=== PATIENT | female | born 1965 | race Caucasian/White ===

== ENCOUNTER 2017-06-15 11:42 | Inpatient (IN) ==
--- NOTE | 2017-06-15 11:50 | History & Physical Report ---
Date of Encounter: 06/15/17 Time of Encounter: 11:50 24 Hour HP Update - Instructions Instructions: If the History and Physical is less than 30 days old and was completed prior to A.M. admission and or procedure and has NOT been updated on calendar day of procedure please complete this update prior to performing procedure. - Update Patient reports changes in Medical Condition: No Changes in examination, assessment, or condition: No Changes in Medication: No Preop tests/diagnostics Reviewed: Yes Surgery Remains Indicated: Yes Consent for Planned Operative Procedure(s) Verified: Yes - Pre-Operative Checklist Preoperative Checklist Indicated: Yes Prophylactic Antibiotic Ordered: Yes Home Medications Include Beta Supriya: No
[2017-06-15] MEDS ORDERED: cefOXitin 2,000 MG in Water for inj. (sterile) 20 ML 10 ML IVP ONE (11:55)
[2017-06-15] MEDS ORDERED: Albuterol 2.5 MG/3 ML NEBULIZER IH ONE (11:55)
[2017-06-15] MEDS ORDERED: Albuterol 2.5 MG/3 ML NEBULIZER ONE (11:56)
[2017-06-15] MEDS: Ringers Solution, Lactated 1,000 ML IVC SCH ×2 (12:11→20:01)
[2017-06-15] MEDS ORDERED: *HR* Succinylcholine 200 MG/10 ML VIAL IVP ONE (12:41)
[2017-06-15] MEDS ORDERED: *HR* FentaNYL (PF) 100 MCG/2 ML VIAL ONE ×3 (12:41→18:55)
[2017-06-15] MEDS ORDERED: *HR* Rocuronium Bromide 50 MG/5 ML VIAL ONE (12:41)
[2017-06-15] MEDS ORDERED: Ondansetron 4 MG/2 ML VIAL ONE ×2 (12:41→17:36)
[2017-06-15] MEDS ORDERED: Lidocaine -MPF 2% 2 ML VIAL ONE ×2 (12:41→17:26)
[2017-06-15] MEDS ORDERED: *HR* Propofol 200 MG/20 ML VIAL IVP ONE (12:41)
[2017-06-15] MEDS ORDERED: *HR* Midazolam HCl 5 MG/5 ML VIAL IVP ONE (12:45)
[2017-06-15] MEDS ORDERED: Lidocaine -MPF 4% 5 ML AMPUL ONE (12:48)
--- NOTE | 2017-06-15 12:52 | Anesthesia Evaluation PreOp ---
Date of Encounter: 06/15/17 Time of Encounter: 12:49 - Past History Planned Operation: Robotic REsection Ascending Colon Cardiac History: Denies any Significant Hx Pulmonary History: Former smoker (quit >5years ago), COPD (denies COPD, occasional Bronchitis maintained on DuoNebs), ANKUR Dx (Negative Sleep Study) REGIONAL SALES DIRECTOR History: Other (Chronic back pain maintained on Gabapentin. Anxiety/ Depression previously maintained on Cymbalta, Wellbutrin) Other Medical History: Hepatic (Fatty Liver), Diabetes Type II (maintained on Glimepiride), Other (N/V maintained on Phenergan. MO/BMI = 61) Anesthesia History: No Prior Anesthetic Complications, Past Anesthesia (C- sections x 3, Hyster, Pelvic tumor resection, Lap nicholas, C4-7 ACDF 2004 [Good range of motion but does get L-shoulder tingling with L-head turn], Colonscopy) Alcohol Use: none Drug use: none Medications and Allergies Gabapentin [Neurontin] 600 mg PO TID 05/07/17 [History] Glimepiride [Amaryl] 1 mg PO DAILY 05/07/17 [History] Albuterol Sulfate [Albuterol Inhaler] 2 puff IH Q4HR PRN 06/15/17 [History] Beclomethasone Diprop 40mcg [Qvar 40 mcg] 1 puff IH BID 06/15/17 [History] 3 Allergy/AdvReac Type Severity Reaction Status Date / Time No Known Allergies Allergy Verified 06/15/17 12:39 - Meds/Allergy Pre-op Review Medications Reviewed: Yes Allergies Reviewed: Yes Beta Blockers on Current Med List: No Anesthesia Results - Labs Laboratory Tests 04/20/17 04/20/17 05/07/17 10:00 10:00 10:27 Creatinine 0.55 L Est GFR (Non-Af Amer) > 60 POC Glucose 98 H Hemoglobin A1c 5.7 H Laboratory Tests 05/21/17 11:43 Hgb 13.8 - Imaging EKG: image reviewed (77bpm SR - SINUS RHYTHM LOW QRS VOLTAGE IN PRECORDIAL LEADS NONSPECIFIC T-WAVE ABNORMALITY Electronically Signed On 05-22-2017 9:21:20 EDT by Donavon Maldonado MD) Anesthesia Exam O2 Sat Height 1.57 m Height 1.57 m Weight 151.953 kg Weight 151.953 kg O2 Sat by Pulse Oximetry 96 Vital Signs Temp Pulse Resp BP Pulse Ox 98.0 F 84 18 111/68 96 06/15/17 11:57 06/15/17 11:57 06/15/17 11:57 06/15/17 11:57 06/15/17 11:57 Height: 5'3" Weight: 329# BMI = 63 - HEENT Pupil (Motor): Pupils equal, EOMI Mallampati: II Teeth: Normal Oral Opening: Greater than 3 - REGIONAL SALES DIRECTOR LOC: Oriented [employer] SALES DIRECTOR Motor: Normal RUE, Normal LUE, Normal RLE, Normal LLE, Normal Face [employer] SALES DIRECTOR Sensory: Normal: RUE, LUE, RLE, LLE, Face - Cardiac Rhythm: Regular Murmur: None - Pulmonary Breath Sounds: bilateral Clear Respiratory Effort: Symmetrical Anesthesia Assess/Plan ASA Score: 4 (Super MO/BMI = 61,) Anes Supervising Prov Stmt: Pt seen/evaluated, R&B discussed, questions answered and consent obtained. Chioma Puri MD
[2017-06-15] MEDS ORDERED: Famotidine 20 MG/2 ML VIAL IVP ONE (12:56)
[2017-06-15] MEDS ORDERED: Pregabalin 75 MG CAPSULE PO ONE (12:57)
[2017-06-15] MEDS ORDERED: Acetaminophen IV 1,000 MG/100 ML INFUS..BTL IVPB ONE ×3 (12:57→21:00)
[2017-06-15] MEDS ORDERED: Bupivacaine/PF 0.75% in Dex 2 ML AMPUL INFILT ONE (16:32)
[2017-06-15] MEDS ORDERED: Morphine Sulfate/PF 5mg/10mL Vial ONE (16:33)
[2017-06-15] MEDS ORDERED: Lacri-Lube 3.5 GM TUBE ONE (17:26)
[2017-06-15] MEDS ORDERED: Dexamethasone 4 MG/ML VIAL ONE (17:36)
[2017-06-15] MEDS ORDERED: SUGAMMADEX SODIUM 500 MG/5 ML VIAL IV ONE (17:56)
[2017-06-15] MEDS ORDERED: Ondansetron 4 MG/2 ML VIAL IVP ONE ×2 (18:26→20:19)
[2017-06-15] MEDS ORDERED: *HR* OxyCODONE Immed Rel 5 MG TABLET PO PRN (18:26)
[2017-06-15] MEDS ORDERED: *HR* Meperidine 25 MG/ML SYRINGE IVP PRN (18:26)
[2017-06-15] MEDS ORDERED: *HR* Labetalol 20 MG/4 ML SYRINGE IVP PRN (18:26)
[2017-06-15] MEDS ORDERED: MORPHINE SUL Oral CONC 10 MG/0.5 ML ORAL.SYG SL PRN (18:26)
[2017-06-15] MEDS ORDERED: *HR* FentaNYL (PF) 100 MCG/2 ML VIAL IVP PRN (18:26)
[2017-06-15] MEDS ORDERED: *HR* Promethazine 25 MG/ML VIAL IVP PRN (18:26)
[2017-06-15] MEDS ORDERED: *HR* Metoprolol 5 MG/5 ML VIAL IVP ONE (18:45)
[2017-06-15] MEDS ORDERED: Ketorolac 30 MG/ML VIAL ONE (19:03)
--- NOTE | 2017-06-15 19:26 | Operative Note ---
Date of procedure: 06/15/17 Pre-op diagnosis: Unresectable ascending colon polyp Post-op diagnosis: same Procedure: Robotic Ascending colectomy Anesthesia: GETA Surgeon: Chauncey Wise Was there an assistant teacher primary present: Yes Milieu Manager: Effie Milligan Estimated blood loss (cc): 5 Specimen: Ascending colon Condition: stable Disposition: same day Procedure in Detail: After informed consent, the patient was taken the operating room placed in the supine position. After adequate sedation and anesthesia the abdomen was prepped and draped. [address] the umbilicus and a Verres needle was inserted into the abdomen. A pneumoperitoneum was created. 3 individual 8 mm cannulas were placed along with a 13 mm cannula. Once in place the [employer] robot was brought over the patient's right hip and positioned. The ports were connected the robot. Attention was replaced. Small bowel was swept to the left lateral position. The cecum and ileum were grasped and the vascular pedicle was identified. A window was created. The duodenum was readily identified and kept out of harm's way. The vascular pedicle was taken with a vessel sealer. The remainder of the colon was dissected free from the retroperitoneum. Once the transverse mesocolon had been divided to the level of the transverse colon it was stapled with a robotic stapler. The same was performed for the terminal ileum. Once that was completed the remainder of the lateral attachments were taken down with a vessel sealer. Colon was parked over the patient's right abdomen. The terminal ileum was then placed next to the transverse colon. 2 enterotomies were created and the colon and the small bowel and a 45 mm stapler was fired down both limbs. The common enterotomy was closed with 2-0 silk suture 2. Once completed the ports were removed and the pneumoperitoneum was evacuated. A small midline incision was made and the specimen was retrieved through a wound protection bag. Once finished the midline was closed with a looped PDS suture and the 13 mm cannula was closed with a 0 Vicryl. [place] were placed in the skin.
--- NOTE | 2017-06-15 20:48 | Anesthesia Evaluation Post Op ---
Date of Encounter: 06/15/17 Time of Encounter: 20:26 - Vital Signs Vital Signs: Vital Signs/O2 Sat, Most Current Temp Pulse Resp BP Pulse Ox 100.7 F H 83 20 145/91 94 06/15/17 20:30 06/15/17 20:30 06/15/17 20:30 06/15/17 20:30 06/15/17 20:30 - Lungs Lungs: Clear Ascult./Percussion - Airway Airway: Non-obstructed - Cardiovascular Regular Rate - Mental Status Mental Status: Alert & Oriented, Answers Appropriately - Pain Pain Scale used: Numeric (1 - 10) (tolerable) - Nausea Vomiting Nausea Vomiting: Present - Hydration Hydration: Ice chips - Discharge PostOp Status: Transfer Patient to floor
[2017-06-15] MEDS ORDERED: Naloxone 0.4 MG/ML INJ IVP PRN (21:00)
[2017-06-15] MEDS: OXYCODONE Oral CONC 10 MG/0.5 ML ORAL.SYG SL PRN (21:55)
[2017-06-15] MEDS: D5% in 0.45% NACL 1,000 ML IVC SCH (21:55)
[2017-06-15] MEDS: Ondansetron 4 MG/2 ML VIAL IVP PRN (22:26)
[2017-06-16] MEDS: OXYCODONE Oral CONC 10 MG/0.5 ML ORAL.SYG SL PRN ×4 (03:35→17:38)
[2017-06-16 05:05] LABS: Basophils % 0.2 %; Eosinophils % 0.1 %; Hematocrit 40.8 % (35.3-44.9); Hemoglobin 13.2 g/dL (11.5-15.4); Immature Granulocytes % 0.4 % (0-4); Lymphocytes # 0.8 K/mcL (0.6-4.6); Lymphocytes % 7.3 %; Mean Corpuscular HGB Conc 32.4 g/dL (31.6-35.5); Mean Corpuscular Hemoglobin 27.1 pg (28.0-33.3); Mean Corpuscular Volume 83.8 fL (83.0-100.0); Mean Platelet Volume 11.4 fL (9.4-12.4); Monocytes # 0.2 K/mcL (0.0-1.3); Monocytes % 1.5 %; Neutrophils # 10.2 K/mcL (1.6-8.9); Platelet Count 254 K/mcL (140-400); Red Blood Count 4.87 M/mcL (3.82-4.97); Red Cell Distribution Width 14.2 % (11.5-14.5); Segmented Neutrophils % 90.5 %
[2017-06-16 05:13] LABS: BUN/Creatinine Ratio 18 (6-26); Blood Urea Nitrogen 13 mg/dL (6-20); Calcium 8.6 mg/dL (8.6-10.3); Carbon Dioxide 21 mEq/L (23-29); Chloride 108 mEq/L (98-107); Glucose 178 mg/dL (70-105); Osmolality,Calculated 287 (280-300); Potassium 4.6 mEq/L (3.5-5.1); Sodium 136 mEq/L (136-145); eGFR For African Americans > 60 (> 60); eGFR For Non-African Americans > 60 (> 60)
--- NOTE | 2017-06-16 09:47 | General Surgery Progress Note ---
<Jarrod Myles - Last Filed: 06/16/17 16:13> Date of Encounter: 06/16/17 Time of Encounter: 08:15 - Assessment and Plan (1) Colon polyp Current Visit: Yes Status: Acute Pt had unresectable colon polyp found on colonoscopy 05/08 Patient had partial colectomy to remove section with polyp. Pt tolerated procedure well. Pathology is pending. Qualifiers: Colon polyp type: unspecified Colon location: ascending Qualified Code(s) : D12.2 - Benign neoplasm of ascending colon (2) S/P partial colectomy Current Visit: Yes Status: Acute POD #1 s/p Robotoic Laproscopic Ascending colectomy. Pt tolerated procudeure well. Plan: start full liquid diet advance as tolerated Zofran PRN Q6H for Nausea Oxycodone HCL Q4Hr prn (Consider switch to percocet) encourage out of bed continue EPCDs for DVT ppx continue IS encourage use. Subjective Patient reports: no new complaints, pain is less, voiding w/o difficulty, no flatus, no bowel movement, afebrile Narrative: 52 yo F c PMHx of HLD, DM, and depression who presented to ED for robotic ascending colectomy to remove unresectable colon polyp discovered on colonsocopy on 05/07. Pt tolerated procedure fine. Patient able to get out of bed and urinate on own. Patient reports not having flatus or BM yet, but reports feeling gas movign in her abd and feels like she will have gas soon. She reports her pain is well controlled. Patient denies Fever, N, V, D, Chest Pain, SOB. Objective Vital Signs - Last 8 Hours Temp Pulse Resp BP Pulse Ox 06/16/17 06:32 98.7 F 77 16 114/74 92 06/16/17 03:51 98.6 F 87 16 118/73 93 Intake and Output 06/15/17 06/16/17 06/16/17 23:59 07:59 15:59 Intake Total 975 / 975 0 / 0 820 / 820 Output Total 75 / 75 650 / 650 Balance 900 / 900 -650 / -650 820 / 820 Intake: IV Fluids 975 / 975 Lactated Ringers 1,000 ML @ 25 975 / 975 mls/hr IVC .Q24H [facility] Rx#: [id number] Oral 0 / 0 820 / 820 Output: Urine 50 / 50 650 / 650 Estimated Blood Loss 25 / 25 Other: Meal clear liquids # Bowel Movements 0 Weight 152.8 kg Blood Glucose* 126 Patient Weight 06/16/17 23:59 Weight 152.8 kg - General physical appearance well developed, well nourished, no distress - Eyes normal ocular movement - ENT normal mucosa - Neck Neck exam: trachea midline - Respiratory normal expansion, normal respiratory effort, clear to auscultation - Cardiovascular Cardiovascular exam: Present: RRR, no murmurs/rubs/gallops - Abdomen Abdomen: Present: bowel sounds present, soft, tender (mild) Abdominal Tenderness: RUQ - Incision Incision: Present: clean and dry, intact - Integumentary no abnormal pigmentation - Neurologic CN 2-12 grossly intact, normal coordination, normal sensation - Musculoskeletal normal posture - Psychiatric oriented to time, oriented to person, oriented to place, speech is normal, memory intact - Labs 06/16/17 04:35 06/16/17 04:35 Diabetes panel 06/16/17 Range/Units 04:35 Sodium 136 (136-145) mEq/L Potassium 4.6 (3.5-5.1) mEq/L Chloride 108 H (98-107) mEq/L Carbon Dioxide 21 L (23-29) mEq/L BUN 13 (6-20) mg/dL Creatinine 0.72 (0.60-1.20) mg/dL Glucose 178 H (70-105) mg/dL Calcium 8.6 (8.6-10.3) mg/dL Calcium panel 06/16/17 Range/Units 04:35 Calcium 8.6 (8.6-10.3) mg/dL Pituitary panel 06/16/17 Range/Units 04:35 Sodium 136 (136-145) mEq/L Potassium 4.6 (3.5-5.1) mEq/L Chloride 108 H (98-107) mEq/L Carbon Dioxide 21 L (23-29) mEq/L BUN 13 (6-20) mg/dL Creatinine 0.72 (0.60-1.20) mg/dL Glucose 178 H (70-105) mg/dL Calcium 8.6 (8.6-10.3) mg/dL Adrenal panel 06/16/17 Range/Units 04:35 Sodium 136 (136-145) mEq/L Potassium 4.6 (3.5-5.1) mEq/L Chloride 108 H (98-107) mEq/L Carbon Dioxide 21 L (23-29) mEq/L BUN 13 (6-20) mg/dL Creatinine 0.72 (0.60-1.20) mg/dL Glucose 178 H (70-105) mg/dL Calcium 8.6 (8.6-10.3) mg/dL - VTE Documentation of Mechanical Device: Intermittent pneumatic compression device Consult Discharge Plan - Plan Referrals: Chauncey Wise DO [Partnered Physician] - 06/26/17 11:15 am <Cal Knight - Last Filed: 06/16/17 22:34> Date of Encounter: 06/16/17 Objective Vital Signs - Last 8 Hours Temp Pulse Resp BP Pulse Ox 06/16/17 20:31 98 06/16/17 18:49 98.3 F 72 16 105/68 98 06/16/17 15:29 95 06/16/17 15:17 98.2 F 83 16 105/66 95 Intake and Output 06/16/17 06/16/17 06/16/17 07:59 15:59 23:59 Intake Total 0 / 0 2540 / 2540 300 / 300 Output Total 650 / 650 0 / 0 600 / 600 Balance -650 / -650 2540 / 2540 -300 / -300 Intake: IV Fluids 1000 / 1000 D5% And 0.45% Nacl 1000 Ml Bag 1000 / 1000 1,000 ML @ 75 mls/hr IVC . [id number] [facility] Rx#:[id number] Oral 0 / 0 1540 / 1540 300 / 300 Output: Urine 650 / 650 0 / 0 600 / 600 Other: Meal Full Full # Voids 2 # Bowel Movements 0 0 Weight 152.8 kg Patient Weight 06/16/17 23:59 Weight 152.8 kg - Labs 06/16/17 04:35 06/16/17 04:35 Diabetes panel 06/16/17 Range/Units 04:35 Sodium 136 (136-145) mEq/L Potassium 4.6 (3.5-5.1) mEq/L Chloride 108 H (98-107) mEq/L Carbon Dioxide 21 L (23-29) mEq/L BUN 13 (6-20) mg/dL Creatinine 0.72 (0.60-1.20) mg/dL Glucose 178 H (70-105) mg/dL Calcium 8.6 (8.6-10.3) mg/dL Calcium panel 06/16/17 Range/Units 04:35 Calcium 8.6 (8.6-10.3) mg/dL Pituitary panel 06/16/17 Range/Units 04:35 Sodium 136 (136-145) mEq/L Potassium 4.6 (3.5-5.1) mEq/L Chloride 108 H (98-107) mEq/L Carbon Dioxide 21 L (23-29) mEq/L BUN 13 (6-20) mg/dL Creatinine 0.72 (0.60-1.20) mg/dL Glucose 178 H (70-105) mg/dL Calcium 8.6 (8.6-10.3) mg/dL Adrenal panel 06/16/17 Range/Units 04:35 Sodium 136 (136-145) mEq/L Potassium 4.6 (3.5-5.1) mEq/L Chloride 108 H (98-107) mEq/L Carbon Dioxide 21 L (23-29) mEq/L BUN 13 (6-20) mg/dL Creatinine 0.72 (0.60-1.20) mg/dL Glucose 178 H (70-105) mg/dL Calcium 8.6 (8.6-10.3) mg/dL - Attending Attestation Patient seen and examiend. All labs, vitals, and notes reviewed, including this one. I agree with the above assessment and plan and wish to add the following... POD#1 s.p alissa R flor; pain controlled; tolerating liquids advance diet as tolerated ambulate PO pain control chem dvt prophylaxis poss d/c in AM
[2017-06-16] MEDS: Ondansetron 4 MG/2 ML VIAL IVP PRN (12:47)
[2017-06-16] MEDS: D5% in 0.45% NACL 1,000 ML IVC SCH (12:48)
[2017-06-17] MEDS: OXYCODONE Oral CONC 10 MG/0.5 ML ORAL.SYG SL PRN ×5 (01:11→19:53)
[2017-06-17] MEDS: *HR* Heparin 5,000 UNIT/ML VIAL SQ SCH ×4 (01:14→21:00)
[2017-06-17] MEDS: D5% in 0.45% NACL 1,000 ML IVC SCH (01:15)
[2017-06-17] MEDS ORDERED: D5% in 0.45% NACL 1,000 ML IVC SCH (10:42)
[2017-06-17] MEDS ORDERED: traMADol 50 MG TABLET PO PRN (15:26)
--- NOTE | 2017-06-17 16:28 | General Surgery Progress Note ---
<Jarrod Myles - Last Filed: 06/17/17 16:23> Date of Encounter: 06/17/17 Time of Encounter: 07:30 - Assessment and Plan (1) Colon polyp Current Visit: Yes Status: Acute Pt had unresectable colon polyp found on colonoscopy 3 Patient had partial colectomy to remove section with polyp. Pt tolerated procedure well. Pathology is pending. Qualifiers: Colon polyp type: unspecified Colon location: ascending Qualified Code(s) : D12.2 - Benign neoplasm of ascending colon (2) S/P partial colectomy Current Visit: Yes Status: Acute POD #1 s/p Robotoic Laproscopic Ascending colectomy. Pt tolerated procudeure well. Plan: Advance to regular idet Zofran PRN Q6H for Nausea Oxycodone HCL Q4Hr prn start ultram and flexeril for increased pain encourage out of bed continue Heparin for DVT ppx continue IS encourage use. D/C home in the morning Subjective Patient reports: no new complaints, still having pain, tolerating liquids well, voiding w/o difficulty, flatus, bowel movement, afebrile Narrative: Pt POD #2 s/p Robotoic Laproscopic Ascending colectomy. As of this morning no BM no flatus. This afternoon patient had large bowel movement, some increased pain. No fever, chest pain, SOB patient would like to stay the night and go home in the morning. Objective Vital Signs - Last 8 Hours Temp Pulse Resp BP Pulse Ox 06/17/17 15:32 97.9 F 78 20 115/69 98 06/17/17 10:43 97.3 F L 73 16 105/59 98 Intake and Output 06/17/17 06/17/17 06/17/17 07:59 15:59 23:59 Intake Total 1200 / 1200 240 / 240 Output Total 600 / 600 Balance 600 / 600 240 / 240 Intake: IV Fluids 1000 / 1000 D5% And 0.45% Nacl 1000 Ml Bag 1000 / 1000 1,000 ML @ 75 mls/hr IVC . [id number] [facility] Rx#:[id number] Oral 200 / 200 240 / 240 Output: Urine 600 / 600 Other: Meal Breakfast Percent of Meal Consumed 100% Weight 152.898 kg Patient Weight 06/17/17 23:59 Weight 152.898 kg - General physical appearance well developed, well nourished, no distress - Eyes normal ocular movement - ENT normal nares, normal mucosa - Neck Neck exam: trachea midline - Respiratory normal expansion, normal respiratory effort, clear to auscultation - Cardiovascular Cardiovascular exam: Present: RRR, no murmurs/rubs/gallops - Abdomen Abdomen: Present: bowel sounds present, soft, non tender - Incision Incision: Present: clean and dry, intact - Integumentary no rash - Neurologic CN 2-12 grossly intact - Musculoskeletal normal gait, normal posture - Psychiatric oriented to time, oriented to person, oriented to place, speech is normal, memory intact - Labs 06/16/17 04:35 06/16/17 04:35 - VTE Documentation of Mechanical Device: Intermittent pneumatic compression device Consult Discharge Plan - Plan Referrals: Chauncey Wise DO [Partnered Physician] - 06/26/17 11:15 am <Cal Knight - Last Filed: 06/17/17 17:04> Date of Encounter: 06/17/17 Objective Vital Signs - Last 8 Hours Temp Pulse Resp BP Pulse Ox 06/17/17 15:32 97.9 F 78 20 115/69 98 06/17/17 10:43 97.3 F L 73 16 105/59 98 Intake and Output 06/17/17 06/17/17 06/17/17 07:59 15:59 23:59 Intake Total 1200 / 1200 240 / 240 Output Total 600 / 600 Balance 600 / 600 240 / 240 Intake: IV Fluids 1000 / 1000 D5% And 0.45% Nacl 1000 Ml Bag 1000 / 1000 1,000 ML @ 75 mls/hr IVC . [id number] [facility] Rx#:[id number] Oral 200 / 200 240 / 240 Output: Urine 600 / 600 Other: Meal Breakfast Percent of Meal Consumed 100% Weight 152.898 kg Patient Weight 06/17/17 23:59 Weight 152.898 kg - Labs 06/16/17 04:35 06/16/17 04:35 - Attending Attestation I have personally seen and examined the patient. I have reviewed pertinent labs , imaging, progress notes, including this one. I agree with the above assessment and plan and wish to include the following... POD #2 s/p alissa r flor; tolerating FLD, now with bowel movements/return of bowel function; okay to advance diet; d/c IVF; plan for d/c in AM
[2017-06-18] MEDS: OXYCODONE Oral CONC 10 MG/0.5 ML ORAL.SYG SL PRN (04:19)
[2017-06-18] MEDS: *HR* Heparin 5,000 UNIT/ML VIAL SQ SCH (04:22)
[2017-06-18 07:44] VITALS: BP 123/80
--- NOTE | 2017-06-18 08:48 | Discharge Summary ---
Orders not resulted at time of discharge: Pending orders 06/15/17 19:26 Surgical Pathology [PTH] Routine Date of Encounter: 06/18/17 Time of Encounter: 08:30 - Discharge Diagnosis (1) Colon polyp Priority: Primary Status: Acute Qualifiers: Colon polyp type: unspecified Colon location: ascending Qualified Code(s) : D12.2 - Benign neoplasm of ascending colon (2) S/P partial colectomy Priority: Primary Status: Acute General Surgery Exam Initial Vital Signs Temp Pulse Resp BP Pulse Ox 98.0 F 84 18 111/68 96 06/15/17 11:57 06/15/17 11:57 06/15/17 11:57 06/15/17 11:57 06/15/17 11:57 - General physical appearance well developed, well nourished, no distress - Eyes normal ocular movement - ENT normal mucosa - Neck trachea midline - Respiratory normal expansion, normal respiratory effort, clear to auscultation - Cardiovascular Cardiovascular exam: Present: RRR, no murmurs/rubs/gallops - Abdomen Abdomen general surgery: Present: bowel sounds present, soft, tender (mild) Abdominal Tenderness: Present: diffusely - Incision Incision: Present: clean and dry, intact - Integumentary Integumentary general surgery: Present: warm and dry - Neurologic Present: CN 2-12 grossly intact - Musculoskeletal Present: normal posture - Psychiatric Psychiatric general surgery: Present: A&Ox3, appropriate, speech is normal, memory intact - Hospital Course Hospital course: Ms. Villafnaa is a 52 year old female c PMHx of HLD, DM, and depression who presented to ED for robotic ascending colectomy to remove unresectable colon polyp discovered on colonsocopy on 05/07. Pt tolerated procedure fine. Patient able to get out of bed and urinate on own. She is tolerating a regular diet and has had bowel movements. She is fit for discharge home with follow up. - Time Spent with Patient Total time spent providing and/or coordinating discharge services: Greater than 30 minutes - Discharge Medications Prescriptions: Ondansetron ODT [Zofran ODT] 4 mg SL Q6HR PRN #15 tab.rapdis PRN Reason: Nausea And Vomiting OxyCODONE/APAP 5/325 [Percocet 5/325 MG] 1 each PO Q6HR PRN 7 Days #28 tablet PRN Reason: Breakthrough Pain Docusate [Colace] 100 mg PO BID #30 capsule Ibuprofen 800 mg PO Q8H #42 tablet Home Medications: Gabapentin [Neurontin] 600 mg PO TID 05/07/17 [History] Glimepiride [Amaryl] 1 mg PO DAILY 05/07/17 [History] Albuterol Sulfate [Albuterol Inhaler] 2 puff IH Q4HR PRN 06/15/17 [History] Beclomethasone Diprop 40mcg [QVAR 40 mcg] 1 puff IH BID 06/15/17 [History] Docusate [Colace] 100 mg PO BID #30 capsule 06/18/17 [Rx] Ibuprofen 800 mg PO Q8H #42 tablet 06/18/17 [Rx] Ondansetron ODT [Zofran ODT] 4 mg SL Q6HR PRN #15 tab.rapdis 06/18/17 [Rx] OxyCODONE/APAP 5/325 [Percocet 5/325 MG] 1 each PO Q6HR PRN 7 Days #28 tablet [Rx] Allergies/Adverse Reactions: 3 Allergy/AdvReac Type Severity Reaction Status Date / Time No Known Allergies Allergy Verified 06/15/17 12:39 Date of admission: 06/15/17 20:12 Primary care physician: Chuyita Rubio CNP Discharging clinician: Jarrod Myles Anticipated date of discharge: 06/18/17 - Patient Status Disposition: Home, Self-Care Condition: Good Functional capacity at discharge: independent ambulation Overall status at discharge: patient is progressing back to baseline - Discharge Instructions Follow Up With: Chauncey Wise DO [Partnered Physician] - 06/26/17 11:15 am Additional Instructions: 1. No pushing, pulling, or lifting greater than 15 lbs for 2-4 weeks . 2. You may shower beginning today, but no tub baths, soaking, or swimming for 2 weeks. 3. You may resume driving when you are off narcotics and are safe to react in a car. 4. Take ibuprofen every 8 hours for discomfort. If this does not relieve discomfort, you may take the as needed Percocet. Take narcotics as directed. Do not take more narcotics then directed and do not share your narcotics with any other person. Do not drink alcohol while on narcotics. 5. Take stool softeners (Colace) or a water based laxative (Miralax) while taking narcotics. You may hold for loose stools. 6. Report any fevers greater than 100.5F, increase abdominal discomfort, drainage that looks like pus, increased redness or pain at the surgical site, or any vomiting. 7. Report any pain in the calves, shortness of breath, or rapid heartbeat. 8. Follow-up in the office as directed. 9. Maintain a low fiber diet for the next 4 weeks. - Diet and Activity Activity: resume usual activities as tolerated Diet: other (Low fiber diet)
== END 2017-06-18 11:22 | disposition home or self-care (01) | DRG 231 ==
LOC: SAMDAY 11:42 → 3ANU 20:12
PROVIDERS: ADMIT Surgery; ATTEND Surgery

== ENCOUNTER 2019-10-10 09:32 | Observation (INO) ==
[2019-10-10] MEDS ORDERED: Nitroglycerin 0.4 MG TAB.SUBL SL PRN ×2 (09:35→11:11)
[2019-10-10] MEDS ORDERED: Aspirin 81 MG TAB.CHEW PO ONE (09:35)
[2019-10-10 10:08] LABS: Basophils % 0.4 %; Eosinophils # 0.1 K/mcL (0.0-0.6); Eosinophils % 1.8 %; Hematocrit 45.4 % (35.3-44.9); Immature Granulocytes % 0.4 % (0-4); Lymphocytes # 1.6 K/mcL (0.6-4.6); Lymphocytes % 23.3 %; Mean Corpuscular HGB Conc 30.8 g/dL (31.6-35.5); Mean Corpuscular Hemoglobin 27.5 pg (28.0-33.3); Mean Corpuscular Volume 89.2 fL (83.0-100.0); Mean Platelet Volume 11.1 fL (9.4-12.4); Monocytes # 0.4 K/mcL (0.0-1.3); Monocytes % 6.5 %; Neutrophils # 4.6 K/mcL (1.6-8.9); Platelet Count 242 K/mcL (140-400); Red Blood Count 5.09 M/mcL (3.82-4.97); Red Cell Distribution Width 15.1 % (11.5-14.5); Segmented Neutrophils % 67.6 %; White Blood Count 6.8 K/mcL (4.3-11.1)
[2019-10-10 10:28] LABS: Prothrombin Time 11.2 Seconds (9.4-12.1)
[2019-10-10 10:28] LABS: BUN/Creatinine Ratio 29 (6-26); Blood Urea Nitrogen 19 mg/dL (6-20); Calcium 8.9 mg/dL (8.6-10.3); Carbon Dioxide 25 mEq/L (23-29); Chloride 106 mEq/L (98-107); Glucose 141 mg/dL (70-105); Osmolality,Calculated 291 (280-300); Sodium 138 mEq/L (136-145); Troponin I < 0.03 ng/mL (< 0.04); eGFR For African Americans > 60 (> 60); eGFR For Non-African Americans > 60 (> 60)
[2019-10-10 10:31] LABS: Activated Partial Thrombo Time 26.4 Seconds (26.0-36.0)
[2019-10-10] MEDS ORDERED: Naloxone 0.4 MG/ML INJ IVP PRN (11:09)
[2019-10-10] MEDS ORDERED: Ondansetron 4 MG/2 ML VIAL IVP PRN (11:09)
[2019-10-10] MEDS ORDERED: Dextrose Gel 15 GM/37.5 ML TUBE PO PRN ×2 (11:13)
[2019-10-10] MEDS ORDERED: *HR* Dextrose 50 % in Water (Vial) 50 ML VIAL IVP PRN (11:13)
[2019-10-10] MEDS ORDERED: D5% in Water 1,000 ML IVC PRN (11:13)
[2019-10-10] MEDS ORDERED: Perflutren Lipid Microsphere 1.3 ML in 0.9 % Sodium Chloride 8.7 ML IVP PRN (11:24)
[2019-10-10] MEDS ORDERED: Ipratropium/Albuterol Neb 3 ML IH PRN (11:51)
[2019-10-10 12:39] LABS: Adenovirus Not Detected (Not Detect); Bordetella Pertussis Not Detected (Not Detect); Chlamydophila pneumoniae Not Detected (Not Detect); Coronavirus 229E Not Detected (Not Detect); Coronavirus HKU1 Not Detected (Not Detect); Coronavirus NL63 Not Detected (Not Detect); Coronavirus OC43 Not Detected (Not Detect); Human Metapneumovirus Not Detected (Not Detect); Human Rhinovirus/Enterovirus Not Detected (Not Detect); Influenza A Subtype 2009 H1 Not Detected (Not Detect); Influenza B Not Detected (Not Detect); Mycoplasma pneumoniae Not Detected (Not Detect); Parainfluenza Virus 1 Not Detected (Not Detect); Parainfluenza Virus 2 Not Detected (Not Detect); Parainfluenza Virus 3 Not Detected (Not Detect); Parainfluenza Virus 4 Not Detected (Not Detect); Respiratory Syncytial Virus Not Detected (Not Detect)
[2019-10-10] MEDS: Insulin LISPRO 300 UNITS/3 ML VIAL SQ SCH ×2 (13:53→17:20)
[2019-10-10] MEDS: hydrOXYzine pamoate 25 MG CAPSULE PO SCH ×2 (14:35→20:58)
[2019-10-10] MEDS: Gabapentin 300 MG CAPSULE PO SCH ×2 (14:35→20:59)
[2019-10-10] MEDS ORDERED: ISOVUE-370 200 ML INFUS..BTL ONE ×2 (15:20→15:45)
[2019-10-10] MEDS ORDERED: Nitroglycerin 1,000 MCG/10 ML VIAL IV ONE (15:20)
[2019-10-10] MEDS ORDERED: Heparin 1,000 UNITS/500 mL 500 ML ONE (15:20)
[2019-10-10] MEDS ORDERED: *HR* Heparin 10,000 UNIT/10 ML VIAL ONE (15:20)
[2019-10-10] MEDS ORDERED: 0.9 % Sodium Chloride 2,000 ML ONE (15:21)
[2019-10-10] MEDS ORDERED: *HR* FentaNYL (PF) 100 MCG/2 ML VIAL ONE (15:53)
[2019-10-10] MEDS ORDERED: *HR* Midazolam HCl 2 MG/2 ML VIAL ONE (15:53)
[2019-10-10] MEDS ORDERED: Insulin LISPRO 300 UNITS/3 ML VIAL SQ SCH (21:00)
[2019-10-11 00:51] LABS: Basophils % 0.4 %; Eosinophils # 0.1 K/mcL (0.0-0.6); Eosinophils % 1.7 %; Hematocrit 42.5 % (35.3-44.9); Hemoglobin 13.3 g/dL (11.5-15.4); Immature Granulocytes % 0.3 % (0-4); Lymphocytes # 1.8 K/mcL (0.6-4.6); Lymphocytes % 23.3 %; Mean Corpuscular HGB Conc 31.3 g/dL (31.6-35.5); Mean Corpuscular Hemoglobin 27.8 pg (28.0-33.3); Mean Corpuscular Volume 88.7 fL (83.0-100.0); Mean Platelet Volume 11.2 fL (9.4-12.4); Monocytes # 0.6 K/mcL (0.0-1.3); Monocytes % 8.4 %; Platelet Count 240 K/mcL (140-400); Red Blood Count 4.79 M/mcL (3.82-4.97); Red Cell Distribution Width 15.4 % (11.5-14.5); Segmented Neutrophils % 65.9 %; White Blood Count 7.5 K/mcL (4.3-11.1)
[2019-10-11 01:09] LABS: BUN/Creatinine Ratio 25 (6-26); Blood Urea Nitrogen 16 mg/dL (6-20); Calcium 8.3 mg/dL (8.6-10.3); Carbon Dioxide 24 mEq/L (23-29); Chloride 108 mEq/L (98-107); Glucose 144 mg/dL (70-105); Magnesium 2.1 mg/dL (1.6-2.6); Osmolality,Calculated 292 (280-300); Phosphorous 3.8 mg/dL (2.7-4.5); Potassium 3.8 mEq/L (3.5-5.1); Sodium 139 mEq/L (136-145); eGFR For African Americans > 60 (> 60); eGFR For Non-African Americans > 60 (> 60)
[2019-10-11] MEDS: Gabapentin 300 MG CAPSULE PO SCH (08:46)
[2019-10-11] MEDS: hydrOXYzine pamoate 25 MG CAPSULE PO SCH (08:47)
[2019-10-11] MEDS: Insulin LISPRO 300 UNITS/3 ML VIAL SQ SCH (08:55)
[2019-10-11] MEDS ORDERED: Loratadine 10 MG TABLET PO SCH (09:00)
[2019-10-11] MEDS ORDERED: Isosorbide MONOnitrate (24 HR) 30 MG TAB.ER.24H PO SCH (09:00)
[2019-10-11] MEDS ORDERED: DilTIAZem CD (24hr) 180 MG CAP.ER.24H PO SCH (09:00)
[2019-10-11] MEDS ORDERED: Aspirin 81 MG TAB.CHEW PO SCH (09:00)
[2019-10-11] MEDS ORDERED: Cholecalciferol (D-3) 1,000 UNIT (25MCG) TABLET PO SCH (09:00)
[2019-10-11] MEDS ORDERED: ARIPiprazole 5 MG TABLET PO SCH (09:00)
[2019-10-11 09:02] VITALS: BP 115/76
== END 2019-10-11 11:02 | disposition home or self-care (01) ==
LOC: EMEROOARM 09:32 → CDU 09:32 → SUATTDRO 12:43 → CDU 13:10 → 3BNU 14:23
PROVIDERS: ADMIT Student in an Organized Health Care Education/Training Program; ATTEND Internal Medicine